=== PATIENT | female | born 1990 | race Caucasian/White ===

== ENCOUNTER 2018-04-20 05:11 | Day surgery (SDC) | payer OTHER ==
[2018-04-13 14:28] VITALS: BMI 23.4
[2018-04-20] MEDS ORDERED: IBUPROFEN 400 MG TABLET (FP) PO PRN (09:03)
[2018-04-20] MEDS ORDERED: ACETAMINOPHEN 325 MG TABLET (FP) PO PRN (09:03)
--- NOTE | 2018-04-20 09:03 | HP ---
History & Physical Update - History History: No Change - Physical Physical: No Change - Assessment Assessment: No Change - Plan Plan: No Change (No change in HP)
--- NOTE | 2018-04-20 10:21 | OP ---
Operative Note - Note: Operative Date: 04/20/18 Pre-Operative Diagnosis: Cervical Dysplasia. HPV Operation: LEEP cone Post-Operative Diagnosis: Same as Pre-op Surgeon: Lucero Estrada Anesthesia: General Estimated Blood Loss (mls): 1 Operative Report Dictated: Yes
[2018-04-20 11:05] VITALS: TEMP 98
[2018-04-20] MEDS ORDERED: ONDANSETRON 4 MG/2 ML VIAL IVPUSH PRN (11:16)
[2018-04-20] MEDS ORDERED: oxyCODONE HCL 5 MG TABLET PO PRN ×2 (11:16)
[2018-04-20] MEDS ORDERED: LACTATED RINGERS SOLUTION 1,000 ML IV SCH (11:30)
[2018-04-20 11:46] VITALS: BP 121/54; PULSE 95
--- NOTE | 2018-04-20 17:54 | OP ---
DATE OF OPERATION: 04/20/2018 PREOPERATIVE DIAGNOSIS: Cervical dysplasia, human papillomavirus. OPERATION: Cone loop electrocautery excision procedure. POSTOPERATIVE DIAGNOSIS: Cervical dysplasia, human papillomavirus. SURGEON: Lucero Estrada MD ANESTHESIA: General. ANESTHESIOLOGIST: Roge Powers MD ESTIMATED BLOOD LOSS: 1 mL. PROCEDURE: Patient was taken to the operating room, placed in dorsal lithotomy position, prepped and draped in the usual sterile fashion. A timeout was called in accordance with hospital regulation. A speculum was placed in vagina and cervix was then painted with Lugol's. A large LEEP cone was then performed. Ectocervix was submitted and then endocervix. Cauterization with the cervix was done for hemostasis. Monsel was then placed. Hemostasis was achieved. Speculum was removed. Patient had tolerated procedure well. Estimated blood loss, again, was 1 mL. LUCERO ESTRADA M.D. [id number]
--- NOTE | 2018-04-24 10:30 | PATH ---
Surgical Pathology Report Patient Name: IDANIA DE LEON [facility]. Rec. #: [id number] /Age/Gender: 1990 (Age: 28) / F Account: [id number] Location: [facility] Taken: 04/20/2018 Received: 04/20/2018 Reported: 04/24/2018 Physicians: Lucero Estrada M.D. Specimen(s) Received A: ENDOCERVICAL BIOPSY B: EXOCERVICAL BIOPSY Clinical History Abnormal Pap smear Final Diagnosis A. ENDOCERVIX, CONE BIOPSY: ENDOCERVICAL TISSUE WITH SQUAMOUS METAPLASIA. NEGATIVE FOR DYSPLASIA. B. ECTOCERVIX, CONE BIOPSY: CERVICAL TISSUE WITH RICH 2 (CERVICAL INTRAEPITHELIAL NEOPLASIA, GRADE 2). MARGINS ARE NEGATIVE FOR HIGH GRADE DYSPLASIA. LOW GRADE DYSPLASIA (RICH 1) PRESENT AT ECTOCERVICAL MARGIN AND IN SEPARATAE SQUAMOUS EPITHELIUM. Comment: Immunohistochemical stains P16 and Ki-67 (at block B4) performed at [facility] ([id number]) interpreted at [facility] confirm the diagnosis of high grade dysplasia. Positive and negative controls (internal if applicable) show appropriate results. Electronically Signed Ilene Ritter M.D. Gross Description A. Received in formalin labeled "endocervix," is a 1.8 x 1.1 x 0.4 cm unoriented portion of soft tissue, consistent with a cervical cone biopsy. The specimen is inked blue, sectioned and entirely and sequentially submitted in 4 cassettes. B. Received in formalin labeled "ectocervix," is a 1.7 x 1.2 x 0.5 cm unoriented portion of soft tissue, consistent with a cervical cone biopsy. The specimen is partially surfaced by a pérez-pink mucosa. The specimen is inked blue, sectioned and entirely and sequentially submitted in 4 cassettes. DL04/20/2018 saudi04/20/2018
== END 2018-04-20 11:45 | disposition home or self-care (01) ==
LOC: JASU-SURG 05:11
PROVIDERS: ATTEND Obstetrics & Gynecology
PROC: 0UBC7ZX Excision of Cervix, Via Natural or Artificial Opening, Diagnostic (ICD-10-PCS; principal; 2018-04-20 09:30)
DX: N87.1 Moderate cervical dysplasia (principal); R87.820 Cervical low risk human papillomavirus (HPV) DNA test positive
CPT/HCPCS: 36415; 84703; 86850; 86900; 86901; 88307-TC; 94760

== ENCOUNTER 2019-06-28 10:55 | Emergency (ER) | payer OTHER ==
[2019-06-28 11:02] VITALS: BP 132/81; PULSE 115; TEMP 100.3; BMI 25.4
--- NOTE | 2019-06-28 12:31 | PDOC ---
History of Present Illness - General Chief Complaint: Cold Symptoms Stated Complaint: COLD SYMPTOMS Time Seen by Provider: 06/28/19 11:49 History Source: Patient Exam Limitations: Clinical Condition - History of Present Illness Initial Comments: 06/28/19 12:27 Patient with no significant past medical history present with complaint of 3 weeks history of persistent cough, nasal congestion, body aches, runny nose, fever and chills. Patient reported seeing PCP a week ago and was told symptoms is likely from virus and was only given Motrin which has not been helping with her symptoms. Denies shortness of breath but reports sore throat. Denies weakness, dizziness, palpitations, nausea or vomiting. Denies any other symptoms. Patient's is sick at home with same symptoms. Denies recent travel. Is this a multiple visit Asthma Patient?: No Timing/Duration: other (3 weeks) Past History - Past Medical History Allergies/Adverse Reactions: Allergies Allergy/AdvReac Type Severity Reaction Status Date / Time No Known Allergies Allergy Verified 11/18/12 17:01 Home Medications: Ambulatory Orders Bcp 1 tab PO DAILY 03/05/18 metroNIDAZOLE 0.75% VAG. GEL [Metrogel 0.75% Vaginal Gel -] 1 applic VG HS 5 Days #1 tube 04/20/18 Azithromycin [Zithromax 250mg Tablets -] 250 mg PO UTDICT #6 tab 06/28/19 Benzonatate [Tessalon Pearls -] 100 mg PO Q8H PRN #21 capsule 06/28/19 Methylprednisolone [Medrol Dose Jonas] 4 mg PO ASDIR #21 tablet 06/28/19 Montelukast Na [Singulair -] 10 mg PO DAILY #7 tablet 06/28/19 Anemia: No Asthma: Yes Cancer: No Cardiac Disorders: No CVA: No COPD: No CHF: No Dementia: No Diabetes: No GI Disorders: No Disorders: No HTN: No Hypercholesterolemia: No Liver Disease: No Seizures: No Thyroid Disease: Yes - Immunization History Immunization Up to Date: No - Psycho Social/Smoking Cessation Hx Smoking Status: No Smoking History: Never smoked Have you smoked in the past 12 months: No Number of Cigarettes Smoked Daily: 0 Information on smoking cessation initiated: No Hx Alcohol Use: No Drug/Substance Use Hx: No Substance Use Type: None Hx Substance Use Treatment: No Review of Systems - Review of Systems Able to Perform ROS?: Yes Is the patient limited Kinyarwanda proficient: No Constitutional: Yes: Chills, Fever, Malaise HEENTM: Yes: Symptoms Reported, See HPI, Nose Congestion, Throat Pain. No: Eye Pain, Blurred Vision, Tearing, Recent change in vision, Double Vision, Cataracts , Ear Pain, Ocular Prothesis, Ear Discharge, Nose Pain, Tinnitus, Nose Bleeding , Hearing Loss, Throat Swelling, Mouth Pain, Dental Problems, Difficulty Swallowing, Mouth Swelling, Other Respiratory: Yes: Symptoms reported, See HPI, Cough. No: Orthopnea, Shortness of Breath, SOB with Exertion, SOB at Rest, Stridor, Wheezing, Productive cough, Hemoptysis, Other Cardiac (ROS): No: Symptoms Reported, See HPI, Chest Pain, Edema, Irregular Heart Rate, Lightheadedness, Palpitations, Syncope, Chest Tightness, Other ABD/GI: No: Symptoms Reported, See HPI, Nausea, Vomiting All Other Systems: Reviewed and Negative *Physical Exam - Vital Signs Last Vital Signs Temp Pulse Resp BP Pulse Ox 100.3 F H 115 H 20 132/81 99 06/28/19 11:00 06/28/19 11:00 06/28/19 11:00 06/28/19 11:06/28/19 11:00 - Physical Exam 06/28/19 12:30 GENERAL: Well developed, well nourished. Awake and alert. No acute distress. HEENT: Normocephalic, atraumatic. PERRLA, EOMI. No conjunctival pallor. Sclera are non-icteric. Moist mucous membranes. Oropharynx is clear. NECK: Supple. Full ROM. CARDIOVASCULAR: Regular rate and rhythm. No murmurs, rubs, or gallops. Distal pulses are 2+ and symmetric. PULMONARY: No evidence of respiratory distress. Lungs clear to auscultation bilaterally. No wheezing, rales or rhonchi. ABDOMINAL: Soft. Non-tender. Non-distended. No rebound or guarding. No organomegaly. Normoactive bowel sounds. MUSCULOSKELETAL Normal range of motion at all joints. SKIN: Warm and dry. Normal capillary refill. No rashes. No jaundice. No cyanosis NEUROLOGICAL: Alert, awake, appropriate. Gait is normal without ataxia. PSYCHIATRIC: Cooperative. Good eye contact. Appropriate mood General Appearance: Yes: Nourished, Appropriately Dressed. No: Apparent Distress Medical Decision Making - Medical Decision Making 06/28/19 12:29 Patient with no significant past medical history present with complaint of 3 weeks history of persistent cough, nasal congestion, body aches, runny nose, fever and chills. Patient reported seeing PCP a week ago and was told symptoms is likely from virus and was only given Motrin which has not been helping with her symptoms. Denies shortness of breath but reports sore throat. Denies weakness, dizziness, palpitations, nausea or vomiting. Denies any other symptoms. Patient's is sick at home with same symptoms. Denies recent travel. Exam significant for low-grade fever 100.3 F orally. Lungs clear to auscultation bilateral. Patient with complaint of malaise. Patient symptoms likely viral infection versus strep. Influenza test and rapid strep ordered to rule out strep and flu. Treat based on lab results 06/28/19 12:55 Rapid flu positive for influenza A which is likely the cause of patient's symptoms. However given patient's with similar symptoms showing possible pneumonia chest x-ray, and patient having symptoms for more than 3 weeks, will also put patient on Z-Jonas antibiotics and Tessalon Perles as needed for cough with PCP follow-up Discharge - Discharge Information Problems reviewed: Yes Clinical Impression/Diagnosis: Influenza A, URI, acute, Malaise and fatigue Fever Qualifiers: Fever type: unspecified Qualified Code(s): R50.9 - Fever, unspecified Condition: Stable Disposition: HOME - Admission No - Additional Discharge Information Prescriptions: Azithromycin [Zithromax 250mg Tablets -] 250 mg PO UTDICT #6 tab Benzonatate [Tessalon Pearls -] 100 mg PO Q8H PRN #21 capsule PRN Reason: Cough Methylprednisolone [Medrol Dose Jonas] 4 mg PO ASDIR #21 tablet Montelukast Na [Singulair -] 10 mg PO DAILY #7 tablet - Follow up/Referral Referrals: Sahil Holliday MD [Primary Care Provider] - - Patient Discharge Instructions Patient Printed Discharge Instructions: DI for Viral Upper Respiratory Infection -- Adult Additional Instructions: Your flu test is positive for influenza A. Take prescribed medication as prescribed. Increase fluid intake. Follow-up with primary care. Continue with Tylenol and Motrin as needed for fever - Post Discharge Activity
== END 2019-06-28 13:02 | disposition home or self-care (01) ==
LOC: JERFT 10:55
DX: J09.X2 Influenza due to identified novel influenza A virus with other respiratory manifestations (principal)
CPT/HCPCS: 87070; 87804; 87880; 99282-25

== ENCOUNTER 2020-07-08 16:49 | Emergency (ER) | payer OTHER ==
[2020-07-08 17:27] VITALS: BMI 28.1
[2020-07-08 18:39] LABS: BASO % 0.5 % (0-2.0); EOS % 2.3 % (0-4.5); HEMATOCRIT 42.4 % (32.4-45.2); HEMOGLOBIN 14.1 GM/dL (10.7-15.3); LYMPH % 40.7 % (8-40); MCH 27.8 pg (25.7-33.7); MCHC 33.3 g/dl (32.0-36.0); MEAN CELL VOLUME 83.4 fl (80-96); MEAN PLT VOLUME 7.7 fl (7.5-11.1); MONO % 7.9 % (3.8-10.2); NEUT % 48.6 % (42.8-82.8); PLATELET COUNT 240 K/MM3 (134-434); RBC 5.08 M/mm3 (3.60-5.2); RDW 12.7 % (11.6-15.6)
[2020-07-08 18:42] LABS: URINE APPEARANCE CLOUDY; URINE BILIRUBIN NEGATIVE (NEGATIVE); URINE COLOR YELLOW; URINE GLUCOSE (UA) NEGATIVE (NEGATIVE); URINE KETONE TRACE (NEGATIVE); URINE LEUK ESTERASE NEGATIVE (NEGATIVE); URINE NITRITE NEGATIVE (NEGATIVE); URINE PROTEIN NEGATIVE (NEGATIVE)
[2020-07-08 18:44] LABS: HCG,QUALITATIVE URINE Negative
[2020-07-08 19:04] LABS: CHLORIDE 104 mmol/L (98-107); POTASSIUM 4.2 mmol/L (3.5-5.1); SODIUM 138 mmol/L (136-145)
[2020-07-08 19:08] LABS: ALBUMIN 3.9 g/dl (3.4-5.0); ANION GAP 5 MMOL/L (8-16); BLOOD UREA NITROGEN 11.1 mg/dL (7-18); CALCIUM 9.1 mg/dL (8.5-10.1); CO2 28 mmol/L (21-32); GLUCOSE,RANDOM 104 mg/dL (74-106)
[2020-07-08 19:11] LABS: SGOT/AST 12 U/L (15-37); SGPT/ALT 25 U/L (13-61)
[2020-07-08 19:12] LABS: CREATININE 0.7 mg/dL (0.55-1.3)
[2020-07-08 19:13] LABS: BILIRUBIN,TOTAL 0.2 mg/dL (0.2-1); TOT PROT 8.1 g/dl (6.4-8.2)
[2020-07-08 19:14] LABS: ALK PHOS 137 U/L (45-117)
[2020-07-08 20:56] VITALS: BP 117/78; PULSE 89; TEMP 98.3
== END 2020-07-08 20:55 | disposition home or self-care (01) ==
LOC: JER 16:49
DX: R07.9 Chest pain, unspecified (principal)
CPT/HCPCS: 36415; 71046-TC-FY; 80053; 81003; 82550; 84443; 84484; 84703; 85025; 85379; 93005; 93010; 99285-25; C9803; U0003

== ENCOUNTER → 2021-01-30 | Day surgery (SDC) | payer OTHER ==
[2021-01-30 10:06] LABS: BLOOD UREA NITROGEN 10.5 mg/dL (7-18)
== END | disposition home or self-care (01) ==
LOC: JRADUS-SUR 08:39
PROVIDERS: ATTEND Physician Assistant Surgical
PROC: BU081ZZ Plain Radiography of Uterus and Fallopian Tubes using Low Osmolar Contrast (ICD-10-PCS; principal; 2021-01-30)
DX: Z31.41 Encounter for fertility testing (principal); N97.2 Female infertility of uterine origin
CPT/HCPCS: 36415; 58340; 74740-TC-FY; 76000-TC-FY; 82540; 84520; 84702; 84703

== ENCOUNTER 2021-04-12 10:42 | Emergency (ER) | payer OTHER ==
[2021-04-12 11:05] VITALS: BMI 26.4
[2021-04-12] MEDS ORDERED: FAMOTIDINE 20 MG/50 ML IVPB 20 MG/50 ML MG IVPB ONE ×2 (11:52→12:24)
[2021-04-12] MEDS ORDERED: SODIUM CHLORIDE 1,000 ML IV STA (11:52)
[2021-04-12] MEDS ORDERED: ACETAMINOPHEN 1000 MG/100 ML VIAL IVPB ONE (11:52)
[2021-04-12] MEDS ORDERED: ACETAMINOPHEN INJECTION 100 ML IVPB ONE (12:24)
[2021-04-12 12:57] LABS: EOS % 0.9 % (0-4.5); HEMATOCRIT 38.8 % (32.4-45.2); HEMOGLOBIN 13.3 GM/dL (10.7-15.3); LYMPH % 50.6 % (8-40); MCH 29.4 pg (25.7-33.7); MCHC 34.3 g/dl (32.0-36.0); MEAN CELL VOLUME 85.7 fl (80-96); MEAN PLT VOLUME 7.4 fl (7.5-11.1); MONO % 4.6 % (3.8-10.2); NEUT % 42.9 % (42.8-82.8); PLATELET COUNT 246 10^3/uL (134-434); RBC 4.53 M/mm3 (3.60-5.2); RDW 12.7 % (11.6-15.6); WHITE BLOOD COUNT 5.7 K/mm3 (4.0-10.0)
[2021-04-12 13:08] LABS: EPI CELLS >36 /uL (0-25.1); HYALINE CASTS 3 /uL (0-3.1); URINE APPEARANCE CLOUDY; URINE BACTERIA 629 /uL (0-1359); URINE BILIRUBIN NEGATIVE (NEGATIVE); URINE COLOR YELLOW; URINE GLUCOSE (UA) NEGATIVE (NEGATIVE); URINE KETONE NEGATIVE (NEGATIVE); URINE LEUK ESTERASE 1+ (NEGATIVE); URINE NITRITE NEGATIVE (NEGATIVE); URINE PROTEIN NEGATIVE (NEGATIVE); URINE RBC 4 /uL (0-23.9); URINE UROBILINOGEN 0.2 mg/dL (0.2-1.0); URINE WBC 29 /uL (0-25.8)
[2021-04-12 13:09] LABS: HCG,QUALITATIVE URINE Negative
[2021-04-12 13:20] LABS: CALCIUM 9.4 mg/dL (8.5-10.1)
[2021-04-12 13:24] LABS: CREATININE 0.8 mg/dL (0.55-1.3)
[2021-04-12 13:25] LABS: BILIRUBIN,TOTAL 0.3 mg/dL (0.2-1); TOT PROT 7.9 g/dl (6.4-8.2)
[2021-04-12 16:20] VITALS: BP 107/71; PULSE 78; TEMP 98
== END 2021-04-12 16:23 | disposition home or self-care (01) ==
LOC: JER 10:42
PROC: 3E033NZ Introduction of Analgesics, Hypnotics, Sedatives into Peripheral Vein, Percutaneous Approach (ICD-10-PCS; principal; 2021-04-12)
PROC: 3E033GC Introduction of Other Therapeutic Substance into Peripheral Vein, Percutaneous Approach (ICD-10-PCS; 2021-04-12)
PROC: 3E0337Z Introduction of Electrolytic and Water Balance Substance into Peripheral Vein, Percutaneous Approach (ICD-10-PCS; 2021-04-12)
DX: R10.2 Pelvic and perineal pain (principal); R10.13 Epigastric pain; N39.0 Urinary tract infection, site not specified; N83.202 Unspecified ovarian cyst, left side
CPT/HCPCS: 36415; 76705-TC; 76830-TC; 80053; 81003; 83690; 84703; 85025; 87077; 87086; 99284-25; J0131

== ENCOUNTER 2021-05-23 16:34 | Inpatient (IN) | payer OTHER ==
[2021-05-23] MEDS ORDERED: PIPERACILLIN/TAZOB 4.5 GM 4.5 GM in DEXTROSE 5%-WATER 100 ML IVPB ONE (20:13)
[2021-05-23] MEDS ORDERED: VANCOMYCIN 1 GM in D5W (PRE-DOCKED) 1,000 MG/250 ML IVPB ONE (20:13)
[2021-05-23] MEDS ORDERED: PIPERACILLIN/TAZOB 4.5 GM 4.5 GM/100 ML BAG IVPB ONE (20:22)
[2021-05-23] MEDS ORDERED: VANCOMYCIN 1 GRAM (PRE-DOCKED) 1,000 MG/250 ML BAG IVPB ONE (20:22)
[2021-05-23 21:04] LABS: BASO % 0.3 % (0-2.0); EOS % 0.8 % (0-4.5); HEMATOCRIT 39.4 % (32.4-45.2); HEMOGLOBIN 13.3 GM/dL (10.7-15.3); LYMPH % 29.5 % (8-40); MCHC 33.7 g/dl (32.0-36.0); MEAN PLT VOLUME 7.6 fl (7.5-11.1); MONO % 3.7 % (3.8-10.2); NEUT % 65.7 % (42.8-82.8); PLATELET COUNT 346 10^3/uL (134-434); RBC 4.58 M/mm3 (3.60-5.2); RDW 12.5 % (11.6-15.6)
[2021-05-23 21:14] LABS: ALBUMIN 3.8 g/dl (3.4-5.0); BLOOD UREA NITROGEN 10.8 mg/dL (7-18); CALCIUM 9.2 mg/dL (8.5-10.1)
[2021-05-23 21:18] LABS: CREATININE 0.8 mg/dL (0.55-1.3)
[2021-05-23 21:19] LABS: BILIRUBIN,TOTAL 0.2 mg/dL (0.2-1)
[2021-05-23 21:59] LABS: EPI CELLS >36 /uL (0-25.1); HCG,QUALITATIVE URINE Negative; HYALINE CASTS 6 /uL (0-3.1); URINE APPEARANCE CLOUDY; URINE BACTERIA 826 /uL (0-1359); URINE BILIRUBIN NEGATIVE (NEGATIVE); URINE COLOR YELLOW; URINE GLUCOSE (UA) NEGATIVE (NEGATIVE); URINE KETONE NEGATIVE (NEGATIVE); URINE LEUK ESTERASE 1+ (NEGATIVE); URINE NITRITE NEGATIVE (NEGATIVE); URINE PROTEIN NEGATIVE (NEGATIVE); URINE RBC 7 /uL (0-23.9); URINE UROBILINOGEN 0.2 mg/dL (0.2-1.0); URINE WBC 178 /uL (0-25.8)
[2021-05-24 07:55] LABS: CALCIUM 8.3 mg/dL (8.5-10.1)
[2021-05-24 07:56] LABS: ALBUMIN 3.2 g/dl (3.4-5.0); BLOOD UREA NITROGEN 10.7 mg/dL (7-18)
[2021-05-24 07:58] LABS: CREATININE 0.8 mg/dL (0.55-1.3); URIC ACID 3.6 mg/dL (2.6-7.2)
[2021-05-24 08:00] LABS: BILIRUBIN,TOTAL 0.4 mg/dL (0.2-1)
[2021-05-24 08:01] LABS: TOT PROT 6.8 g/dl (6.4-8.2)
[2021-05-24 08:23] LABS: BASO % 0.1 % (0-2.0); EOS % 0.5 % (0-4.5); HEMATOCRIT 36.1 % (32.4-45.2); HEMOGLOBIN 12.4 GM/dL (10.7-15.3); LYMPH % 19.4 % (8-40); MCH 29.5 pg (25.7-33.7); MCHC 34.3 g/dl (32.0-36.0); MEAN CELL VOLUME 86.2 fl (80-96); MEAN PLT VOLUME 7.3 fl (7.5-11.1); MONO % 3.1 % (3.8-10.2); NEUT % 76.9 % (42.8-82.8); PLATELET COUNT 308 10^3/uL (134-434); RBC 4.19 M/mm3 (3.60-5.2); RDW 12.4 % (11.6-15.6); WHITE BLOOD COUNT 10.6 K/mm3 (4.0-10.0)
[2021-05-24] MEDS: SODIUM CHLORIDE 1,000 ML IV SCH ×2 (09:23→14:33)
[2021-05-24] MEDS ORDERED: CLINDAMYCIN 600MG PREMIX IVPB 600 MG/50 ML BAG IVPB ONE (09:27)
[2021-05-24] MEDS ORDERED: ENOXAPARIN NA (PORCINE) 40 MG/0.4 ML DISP.SYRIN SQ ONE (09:27)
[2021-05-24] MEDS: ENOXAPARIN NA (PORCINE) 40 MG/0.4 ML DISP.SYRIN SQ SCH (09:33)
[2021-05-24] MEDS ORDERED: CLINDAMYCIN 600MG PREMIX IVPB 600 MG/50 ML BAG IVPB SCH (10:00)
[2021-05-24 13:08] VITALS: BMI 27.1
[2021-05-24 17:36] LABS: HIV INTERPRETATION NEGATIVE (NEGATIVE)
[2021-05-24] MEDS ORDERED: WATER IVPB SCH (18:00)
[2021-05-24] MEDS ORDERED: CLINDAMYCIN IVPB SCH (18:00)
[2021-05-24] MEDS ORDERED: DEXTROSE 5% IVPB SCH (18:00)
[2021-05-24] MEDS: CLINDAMYCIN 300 MG PREMIX IVPB 300 MG/50 ML BAG IVPB SCH (18:29)
[2021-05-25] MEDS ORDERED: diphenhydrAMINE HCL 25 MG CAPSULE (FP) PO ONE (00:27)
[2021-05-25] MEDS: CLINDAMYCIN 300 MG PREMIX IVPB 300 MG/50 ML BAG IVPB SCH ×2 (01:08→10:33)
[2021-05-25] MEDS ORDERED: PT OWN MED DRAWER 7, Y5N ONE ×2 (09:11→14:35)
[2021-05-25] MEDS: ENOXAPARIN NA (PORCINE) 40 MG/0.4 ML DISP.SYRIN SQ SCH (10:33)
[2021-05-25 10:36] LABS: BASO % 0.2 % (0-2.0); EOS % 0.9 % (0-4.5); HEMATOCRIT 36.3 % (32.4-45.2); HEMOGLOBIN 12.2 GM/dL (10.7-15.3); LYMPH % 28.3 % (8-40); MCH 29.2 pg (25.7-33.7); MCHC 33.6 g/dl (32.0-36.0); MEAN CELL VOLUME 87.1 fl (80-96); MEAN PLT VOLUME 7.5 fl (7.5-11.1); MONO % 3.5 % (3.8-10.2); NEUT % 67.1 % (42.8-82.8); PLATELET COUNT 311 10^3/uL (134-434); RBC 4.17 M/mm3 (3.60-5.2); RDW 12.4 % (11.6-15.6); WHITE BLOOD COUNT 5.6 K/mm3 (4.0-10.0)
[2021-05-25 10:56] LABS: CALCIUM 8.3 mg/dL (8.5-10.1)
[2021-05-25 10:57] LABS: BLOOD UREA NITROGEN 11.7 mg/dL (7-18)
[2021-05-25 10:58] LABS: MAGNESIUM 2.1 mg/dL (1.8-2.4)
[2021-05-25 11:00] LABS: PHOSPHOROUS 3.2 mg/dL (2.5-4.9)
[2021-05-25 11:01] LABS: CREATININE 0.9 mg/dL (0.55-1.3)
[2021-05-25 11:51] LABS: HIV INTERPRETATION NEGATIVE (NEGATIVE)
[2021-05-25 14:36] VITALS: BP 112/69; PULSE 87; TEMP 98.8
== END 2021-05-25 18:06 | disposition home or self-care (01) | DRG 385 ==
LOC: JER 16:34 → JERBED 05-24 02:12 → J8W 05-24 12:26
PROVIDERS: ADMIT Internal Medicine
DX: L24.3 Irritant contact dermatitis due to cosmetics (principal); E05.90 Thyrotoxicosis, unspecified without thyrotoxic crisis or storm; E03.9 Hypothyroidism, unspecified; J45.909 Unspecified asthma, uncomplicated; N85.4 Malposition of uterus; R82.71 Bacteriuria
CPT/HCPCS: 36415; 71046-TC-FY; 73701-TC-RT; 80048; 80053; 81003; 83690; 83735; 84100; 84439; 84443; 84550; 84703; 85025; 85651; 86140; 87040; 87086; 87389; 93005; 93010; 93970-TC; 99285-25; C9803; U0003; U0005

== ENCOUNTER 2021-12-02 23:07 | Emergency (ER) | payer OTHER ==
[2021-12-02 23:19] VITALS: BP 130/89; PULSE 73; TEMP 99.1; BMI 26.4
== END 2021-12-03 02:25 | disposition home or self-care (01) ==
LOC: JER 23:07
DX: J06.9 Acute upper respiratory infection, unspecified (principal)
CPT/HCPCS: 71046-TC-FY; 99283-25

== ENCOUNTER 2022-05-15 10:23 | Inpatient (IN) | payer OTHER ==
[2022-05-15] MEDS ORDERED: ACETAMINOPHEN 500 MG TABLET (FP) PO ONE (10:40)
[2022-05-15] MEDS ORDERED: ONDANSETRON 4 MG/2 ML VIAL IVPUSH ONE (12:20)
[2022-05-15] MEDS ORDERED: SODIUM CHLORIDE 1,000 ML IV STA (12:20)
[2022-05-15] MEDS ORDERED: ONDANSETRON 4 MG/2 ML VIAL ONE (12:42)
[2022-05-15 12:49] VITALS: RESP 18
[2022-05-15 13:07] LABS: HCG,QUALITATIVE URINE Negative
[2022-05-15 13:10] LABS: EPI CELLS >36 /uL (0-25.1); HYALINE CASTS 1 /uL (0-3.1); URINE APPEARANCE CLOUDY; URINE BACTERIA 96 /uL (0-1359); URINE BILIRUBIN NEGATIVE (NEGATIVE); URINE COLOR YELLOW; URINE GLUCOSE (UA) NEGATIVE (NEGATIVE); URINE KETONE NEGATIVE (NEGATIVE); URINE LEUK ESTERASE TRACE (NEGATIVE); URINE NITRITE NEGATIVE (NEGATIVE); URINE PROTEIN NEGATIVE (NEGATIVE); URINE RBC 13 /uL (0-23.9); URINE UROBILINOGEN 0.2 mg/dL (0.2-1.0); URINE WBC 51 /uL (0-25.8)
[2022-05-15 13:52] LABS: CALCIUM 8.1 mg/dL (8.5-10.1)
[2022-05-15 13:53] LABS: ALBUMIN 3.6 g/dl (3.4-5.0); BLOOD UREA NITROGEN 8.8 mg/dL (7-18)
[2022-05-15 13:57] LABS: BILIRUBIN,TOTAL 0.1 mg/dL (0.2-1)
[2022-05-15 13:58] LABS: TOT PROT 7.4 g/dl (6.4-8.2)
[2022-05-15 14:05] LABS: BASO % 0.3 % (0-2.0); EOS % 0.2 % (0-4.5); HEMATOCRIT 39.6 % (32.4-45.2); HEMOGLOBIN 13.1 GM/dL (10.7-15.3); LYMPH % 11.5 % (8-40); MCH 27.8 pg (25.7-33.7); MEAN CELL VOLUME 84.4 fl (80-96); MEAN PLT VOLUME 8.3 fl (7.5-11.1); MONO % 5.8 % (3.8-10.2); NEUT % 82.2 % (42.8-82.8); PLATELET COUNT 143 10^3/uL (134-434); RDW 12.9 % (11.6-15.6)
[2022-05-15 14:14] LABS: WHITE BLOOD COUNT 1.6 K/mm3 (4.0-10.0)
[2022-05-15 14:39] LABS: BASO % 0.9 % (0-2.0); EOS % 0.2 % (0-4.5); HEMATOCRIT 37.5 % (32.4-45.2); HEMOGLOBIN 12.3 GM/dL (10.7-15.3); LYMPH % 19.7 % (8-40); MCH 27.7 pg (25.7-33.7); MCHC 32.8 g/dl (32.0-36.0); MEAN CELL VOLUME 84.6 fl (80-96); MEAN PLT VOLUME 7.2 fl (7.5-11.1); MONO % 8.4 % (3.8-10.2); NEUT % 70.8 % (42.8-82.8); PLATELET COUNT 122 10^3/uL (134-434); RBC 4.44 M/mm3 (3.60-5.2); RDW 12.7 % (11.6-15.6); WHITE BLOOD COUNT 1.5 K/mm3 (4.0-10.0)
[2022-05-15] MEDS ORDERED: CEFTRIAXONE 1 GM in DEXTROSE 5%-WATER - 100 ML IVPB ONE (14:57)
[2022-05-15 15:21] LABS: ANISOCYTOSIS 0; HELMET CELLS 0; HOWELL-JOLLY BODIES 0; MACROCYTOSIS 0; OVALOCYTE 0; ROULEAU 0; SICKELED CELLS 0; TARGET CELLS 0; TEAR DROP CELLS 0; TOXIC GRANULATION 0
[2022-05-15] MEDS ORDERED: DOXYCYCLINE INJECTION 100 MG in DEXTROSE 5%-WATER 100 ML IVPB ONE (15:30)
[2022-05-15 16:07] LABS: BASO % 0.3 % (0-2.0); EOS % 0.2 % (0-4.5); HEMATOCRIT 39.3 % (32.4-45.2); HEMOGLOBIN 12.9 GM/dL (10.7-15.3); LYMPH % 26.1 % (8-40); MCH 27.6 pg (25.7-33.7); MCHC 32.7 g/dl (32.0-36.0); MEAN CELL VOLUME 84.2 fl (80-96); MEAN PLT VOLUME 7.9 fl (7.5-11.1); MONO % 10.1 % (3.8-10.2); NEUT % 63.3 % (42.8-82.8); PLATELET COUNT 137 10^3/uL (134-434); RBC 4.66 M/mm3 (3.60-5.2); RDW 12.7 % (11.6-15.6)
[2022-05-15 16:08] LABS: WHITE BLOOD COUNT 1.4 K/mm3 (4.0-10.0)
[2022-05-15] MEDS ORDERED: CEFTRIAXONE 1 GM/50 ML BAG ONE (16:08)
[2022-05-15 16:22] LABS: ANISOCYTOSIS 1+; MACROCYTOSIS 1+
[2022-05-15] MEDS ORDERED: DOXYCYCLINE HYCLATE 100 MG VIAL ONE (16:34)
[2022-05-15 17:21] LABS: ANISOCYTOSIS 1+; MACROCYTOSIS 0
[2022-05-15] MEDS ORDERED: METHOCARBAMOL 500 MG TABLET PO ONE (17:43)
[2022-05-15] MEDS ORDERED: KETOROLAC TROMETHAMINE 15 MG/ML VIAL IVPUSH ONE (17:43)
[2022-05-15] MEDS ORDERED: PIPERACILLIN/TAZOB 3.375 GM 3.375 GM/50 ML BAG IVPB ONE (17:55)
[2022-05-15] MEDS ORDERED: KETOROLAC TROMETHAMINE 15 MG/ML VIAL ONE (18:02)
[2022-05-15] MEDS ORDERED: METHOCARBAMOL 500 MG TABLET ONE (18:02)
[2022-05-15] MEDS: PIPERACILLIN/TAZOB 3.375 GM 3.375 GM in DEXTROSE 5%-WATER - 50 ML IVPB SCH (18:14)
[2022-05-16] MEDS ORDERED: DOXYCYCLINE HYCLATE 100 MG VIAL ONE (02:06)
[2022-05-16 07:40] LABS: HEMATOCRIT 37.6 % (32.4-45.2); HEMOGLOBIN 12.5 GM/dL (10.7-15.3); MCH 27.9 pg (25.7-33.7); MCHC 33.2 g/dl (32.0-36.0); MEAN PLT VOLUME 7.9 fl (7.5-11.1); PLATELET COUNT 128 10^3/uL (134-434); RBC 4.48 M/mm3 (3.60-5.2); RDW 12.8 % (11.6-15.6)
[2022-05-16 07:46] LABS: WHITE BLOOD COUNT 1.7 K/mm3 (4.0-10.0)
[2022-05-16 07:59] LABS: CALCIUM 7.4 mg/dL (8.5-10.1)
[2022-05-16 08:00] LABS: ALBUMIN 3.1 g/dl (3.4-5.0); BLOOD UREA NITROGEN 10.2 mg/dL (7-18); MAGNESIUM 2.1 mg/dL (1.8-2.4)
[2022-05-16 08:03] LABS: CREATININE 0.8 mg/dL (0.55-1.3); PHOSPHOROUS 2.8 mg/dL (2.5-4.9)
[2022-05-16 08:04] LABS: BILIRUBIN,TOTAL 0.3 mg/dL (0.2-1); TOT PROT 6.5 g/dl (6.4-8.2)
[2022-05-16] MEDS: DOXYCYCLINE INJECTION 100 MG in DEXTROSE 5%-WATER 100 ML IVPB SCH ×3 (08:12→22:15)
[2022-05-16] MEDS: PIPERACILLIN/TAZOB 3.375 GM 3.375 GM in DEXTROSE 5%-WATER - 50 ML IVPB SCH ×3 (08:12→17:52)
[2022-05-16 09:11] LABS: ANISOCYTOSIS 0; HELMET CELLS 0; HOWELL-JOLLY BODIES 0; MACROCYTOSIS 0; OVALOCYTE 0; ROULEAU 0; SICKELED CELLS 0; TARGET CELLS 0; TEAR DROP CELLS 0; TOXIC GRANULATION 0
[2022-05-16] MEDS ORDERED: FLU VACC QS2022-23(6MOS UP)/PF 60 MCG/0.5 ML SYRINGE IM ONE (09:27)
[2022-05-16] MEDS ORDERED: METHIMAZOLE 10 MG TABLET PO SCH (10:00)
[2022-05-16] MEDS ORDERED: ACETAMINOPHEN 1000 MG/100 ML BAG IVPB PRN (15:42)
[2022-05-16] MEDS ORDERED: ONDANSETRON 4 MG TABLET PO ONE (16:23)
[2022-05-17] MEDS: PIPERACILLIN/TAZOB 3.375 GM 3.375 GM in DEXTROSE 5%-WATER - 50 ML IVPB SCH (03:12)
[2022-05-17] MEDS ORDERED: ONDANSETRON 4 MG/2 ML VIAL IVPUSH ONE (08:58)
[2022-05-17] MEDS: DOXYCYCLINE INJECTION 100 MG in DEXTROSE 5%-WATER 100 ML IVPB SCH ×2 (09:47→21:56)
[2022-05-17] MEDS ORDERED: TBO-FILGRASTIM 300 MCG/0.5 ML DISP.SYRINGE SQ ONE (11:00)
[2022-05-17 14:08] LABS: HEMATOCRIT 40.4 % (32.4-45.2); HEMOGLOBIN 13.2 GM/dL (10.7-15.3); MCH 27.3 pg (25.7-33.7); MCHC 32.6 g/dl (32.0-36.0); MEAN CELL VOLUME 83.9 fl (80-96); MEAN PLT VOLUME 8.5 fl (7.5-11.1); PLATELET COUNT 155 10^3/uL (134-434); RBC 4.81 M/mm3 (3.60-5.2); RDW 12.6 % (11.6-15.6); WHITE BLOOD COUNT 2.1 K/mm3 (4.0-10.0)
[2022-05-17 14:29] LABS: BLOOD UREA NITROGEN 13.8 mg/dL (7-18)
[2022-05-17 14:32] LABS: CREATININE 0.9 mg/dL (0.55-1.3)
[2022-05-17 14:42] LABS: CALCIUM 8.8 mg/dL (8.5-10.1)
[2022-05-17 15:24] LABS: HIV INTERPRETATION NEGATIVE (NEGATIVE)
[2022-05-17 16:21] VITALS: BMI 26.0
[2022-05-17] MEDS ORDERED: methylPREDNISolone 4 MG TABLET PO SCH (16:30)
[2022-05-17] MEDS ORDERED: ACETAMINOPHEN 325 MG TABLET (FP) PO PRN (17:24)
[2022-05-17] MEDS ORDERED: methylPREDNISolone 4 MG TABLET PO ONE (17:30)
[2022-05-17] MEDS: PANTOPRAZOLE 40 MG TABLET PO SCH (18:06)
[2022-05-17] MEDS ORDERED: morphine CARPU-JECT 2 MG/1 ML DISP.SYRIN IVPUSH ONE (23:06)
[2022-05-17] MEDS ORDERED: KETOROLAC TROMETHAMINE 10 MG TABLET PO ONE (23:30)
[2022-05-18] MEDS ORDERED: ASPIRIN 325 MG TABLET PO ONE (06:00)
[2022-05-18 07:51] LABS: HEMATOCRIT 39.6 % (32.4-45.2); HEMOGLOBIN 13.2 GM/dL (10.7-15.3); MCHC 33.2 g/dl (32.0-36.0); MEAN CELL VOLUME 84.2 fl (80-96); MEAN PLT VOLUME 8.1 fl (7.5-11.1); PLATELET COUNT 147 10^3/uL (134-434); RDW 12.9 % (11.6-15.6)
[2022-05-18 08:04] LABS: WHITE BLOOD COUNT 18.9 K/mm3 (4.0-10.0)
[2022-05-18 08:10] LABS: BLOOD UREA NITROGEN 12.8 mg/dL (7-18); CALCIUM 8.3 mg/dL (8.5-10.1)
[2022-05-18 08:11] LABS: ALBUMIN 3.4 g/dl (3.4-5.0)
[2022-05-18 08:14] LABS: CREATININE 0.8 mg/dL (0.55-1.3)
[2022-05-18 08:15] LABS: BILIRUBIN,TOTAL 0.3 mg/dL (0.2-1)
[2022-05-18] MEDS ORDERED: TBO-FILGRASTIM 300 MCG/0.5 ML DISP.SYRINGE SQ SCH (10:00)
[2022-05-18] MEDS ORDERED: methylPREDNISolone 4 MG TABLET PO ONE (10:00)
[2022-05-18] MEDS: DOXYCYCLINE INJECTION 100 MG in DEXTROSE 5%-WATER 100 ML IVPB SCH ×2 (10:53→21:45)
[2022-05-18] MEDS: PANTOPRAZOLE 40 MG TABLET PO SCH (10:53)
[2022-05-19 07:59] LABS: BASO % 0.1 % (0-2.0); EOS % 0.2 % (0-4.5); HEMATOCRIT 38.7 % (32.4-45.2); LYMPH % 14.4 % (8-40); MCHC 33.5 g/dl (32.0-36.0); MEAN CELL VOLUME 83.5 fl (80-96); MEAN PLT VOLUME 8.1 fl (7.5-11.1); MONO % 3.8 % (3.8-10.2); NEUT % 81.5 % (42.8-82.8); PLATELET COUNT 164 10^3/uL (134-434); RBC 4.63 M/mm3 (3.60-5.2); RDW 12.8 % (11.6-15.6); WHITE BLOOD COUNT 12.5 K/mm3 (4.0-10.0)
[2022-05-19 08:05] LABS: CALCIUM 8.3 mg/dL (8.5-10.1)
[2022-05-19 08:06] LABS: BLOOD UREA NITROGEN 14.8 mg/dL (7-18)
[2022-05-19 08:09] LABS: CREATININE 0.7 mg/dL (0.55-1.3)
[2022-05-19] MEDS ORDERED: methylPREDNISolone 4 MG TABLET PO ONE (10:00)
[2022-05-19] MEDS: PANTOPRAZOLE 40 MG TABLET PO SCH (10:10)
[2022-05-19] MEDS: DOXYCYCLINE INJECTION 100 MG in DEXTROSE 5%-WATER 100 ML IVPB SCH (10:10)
[2022-05-19 14:05] VITALS: BP 121/75; PULSE 79; TEMP 98.9
[2022-05-20] MEDS ORDERED: methylPREDNISolone 4 MG TABLET PO ONE (10:00)
[2022-05-20 15:07] LABS: E.chaff HME IgG Negative (Neg:<1:64)
[2022-05-21] MEDS ORDERED: methylPREDNISolone 4 MG TABLET PO ONE (10:00)
[2022-05-22] MEDS ORDERED: methylPREDNISolone 4 MG TABLET PO ONE (10:00)
== END 2022-05-19 16:30 | disposition home or self-care (01) | DRG 660 ==
LOC: JER 10:23 → JERBED 19:43 → J7W 05-16 10:24
PROVIDERS: ADMIT Internal Medicine; ATTEND Internal Medicine
DX: D70.9 Neutropenia, unspecified (principal); M54.50 Low back pain, unspecified; D69.6 Thrombocytopenia, unspecified; E05.90 Thyrotoxicosis, unspecified without thyrotoxic crisis or storm; A04.8 Other specified bacterial intestinal infections; R50.9 Fever, unspecified; R19.7 Diarrhea, unspecified; R50.81 Fever presenting with conditions classified elsewhere; K29.00 Acute gastritis without bleeding; B96.81 Helicobacter pylori [H. pylori] as the cause of diseases classified elsewhere; I82.612 Acute embolism and thrombosis of superficial veins of left upper extremity
CPT/HCPCS: 0241U-QW; 36415; 71046-TC-FY; 74176-TC; 80048; 80053; 81003; 82272; 82930; 83735; 84100; 84443; 84703; 85025; 85027; 86038; 86618; 86666; 86704; 86803; 87040; 87086; 87186; 87207; 87340; 87389; 87798; 93005; 93010; 93971; 99285-25; J1447

== ENCOUNTER 2022-12-10 08:49 | Emergency (ER) | payer OTHER ==
[2022-12-10 08:58] VITALS: BP 130/91; PULSE 77; RESP 20; TEMP 99; BMI 27.3
[2022-12-10] MEDS ORDERED: ACETAMINOPHEN 325 MG TABLET (FP) PO ONE (10:11)
[2022-12-10] MEDS ORDERED: KETOROLAC TROMETHAMINE 30 MG/1 ML VIAL IM ONE (10:15)
[2022-12-10] MEDS ORDERED: ACETAMINOPHEN 325 MG TABLET (FP) ONE (10:20)
[2022-12-10] MEDS ORDERED: KETOROLAC TROMETHAMINE 30 MG/1 ML VIAL ONE (10:20)
== END 2022-12-10 10:43 | disposition home or self-care (01) ==
LOC: JER 08:49 → JERFT 08:49
PROC: 3E0233Z Introduction of Anti-inflammatory into Muscle, Percutaneous Approach (ICD-10-PCS; principal; 2022-12-10)
DX: N64.4 Mastodynia (principal); R68.83 Chills (without fever)
CPT/HCPCS: 99284-25

== ENCOUNTER 2023-03-21 23:46 | Emergency (ER) | payer OTHER ==
[2023-03-21 23:50] VITALS: BP 120/80; PULSE 98; RESP 18; TEMP 98.1; BMI 27.3
[2023-03-22] MEDS ORDERED: ONDANSETRON *ODT* 4 MG TABLET SL ONE (00:24)
[2023-03-22] MEDS ORDERED: ONDANSETRON *ODT* 4 MG TABLET ONE (00:29)
[2023-03-22] MEDS ORDERED: LACTATED RINGERS SOLUTION 1000 ML INFUS.BAG IV ONE (00:31)
[2023-03-22] MEDS ORDERED: ACETAMINOPHEN 1000 MG/100 ML BAG IVPB ONE (00:31)
[2023-03-22] MEDS ORDERED: FAMOTIDINE 20 MG/50 ML IVPB 20 MG/50 ML MG IVPB ONE ×2 (00:31→00:38)
[2023-03-22] MEDS ORDERED: METOCLOPRAMIDE HCL INJECTION 10 MG/2 ML VIAL IVPUSH ONE (00:31)
[2023-03-22] MEDS ORDERED: FAMOTIDINE 10 MG/ML VIAL IVPB ONE (00:38)
[2023-03-22] MEDS ORDERED: METOCLOPRAMIDE HCL INJECTION 10 MG/2 ML VIAL ONE (00:41)
[2023-03-22] MEDS ORDERED: ACETAMINOPHEN INJECTION 100 ML IVPB ONE (00:43)
[2023-03-22] MEDS ORDERED: MAG HYDROX/AL HYDROX/SIMETH -MYLANTA- ORAL SUSPENSION PO ONE (00:46)
[2023-03-22] MEDS ORDERED: MAG HYDROX/AL HYDROX/SIMETH 30 ML UNIT-DOSE CUP ONE (00:47)
[2023-03-22 01:00] LABS: BASO % 0.2 % (0-2.0); EOS % 0.4 % (0-4.5); HEMATOCRIT 40.3 % (32.4-45.2); HEMOGLOBIN 14.3 GM/dL (10.7-15.3); LYMPH % 13.3 % (8-40); MCH 30.5 pg (25.7-33.7); MCHC 35.6 g/dl (32.0-36.0); MEAN CELL VOLUME 85.7 fl (80-96); MEAN PLT VOLUME 7.3 fl (7.5-11.1); MONO % 6.3 % (3.8-10.2); NEUT % 79.8 % (42.8-82.8); PLATELET COUNT 236 10^3/uL (134-434); RDW 12.5 % (11.6-15.6); WHITE BLOOD COUNT 7.2 K/mm3 (4.0-10.0)
[2023-03-22 01:19] LABS: POTASSIUM 3.5 mmol/L (3.5-5.1)
[2023-03-22 01:20] LABS: CALCIUM 8.6 mg/dL (8.5-10.1)
[2023-03-22 01:21] LABS: ALBUMIN 3.6 g/dl (3.4-5.0); BLOOD UREA NITROGEN 5.7 mg/dL (7-18)
[2023-03-22 01:24] LABS: CREATININE 0.7 mg/dL (0.55-1.3)
[2023-03-22 01:25] LABS: BILIRUBIN,TOTAL 0.3 mg/dL (0.2-1)
[2023-03-22 01:26] LABS: TOT PROT 7.5 g/dl (6.4-8.2)
[2023-03-22 03:41] LABS: EPI CELLS 16 /uL (0-25.1); HYALINE CASTS 0 /uL (0-3.1); URINE APPEARANCE CLEAR; URINE BACTERIA 1096 /uL (0-1359); URINE BILIRUBIN NEGATIVE (NEGATIVE); URINE COLOR YELLOW; URINE GLUCOSE (UA) NEGATIVE (NEGATIVE); URINE KETONE NEGATIVE (NEGATIVE); URINE LEUK ESTERASE 2+ (NEGATIVE); URINE NITRITE NEGATIVE (NEGATIVE); URINE PROTEIN NEGATIVE (NEGATIVE); URINE RBC 10 /uL (0-23.9); URINE UROBILINOGEN 0.2 mg/dL (0.2-1.0); URINE WBC 189 /uL (0-25.8)
[2023-03-22] MEDS ORDERED: CEPHALEXIN MONOHYDRATE 500 MG CAPSULE (UD) PO ONE (03:43)
[2023-03-22] MEDS ORDERED: CEPHALEXIN MONOHYDRATE 500 MG CAPSULE (UD) ONE (04:05)
== END 2023-03-22 05:03 | disposition home or self-care (01) ==
LOC: JER 23:46
PROC: 3E033GC Introduction of Other Therapeutic Substance into Peripheral Vein, Percutaneous Approach (ICD-10-PCS; principal; 2023-03-22)
PROC: 3E033NZ Introduction of Analgesics, Hypnotics, Sedatives into Peripheral Vein, Percutaneous Approach (ICD-10-PCS; 2023-03-22)
PROC: 3E033GC Introduction of Other Therapeutic Substance into Peripheral Vein, Percutaneous Approach (ICD-10-PCS; 2023-03-22)
DX: O21.9 Vomiting of pregnancy, unspecified (principal); O26.891 Other specified pregnancy related conditions, first trimester; R10.11 Right upper quadrant pain; R10.13 Epigastric pain; O23.41 Unspecified infection of urinary tract in pregnancy, first trimester; Z3A.08 8 weeks gestation of pregnancy
CPT/HCPCS: 36415; 76705-TC; 76815; 80053; 81003; 83690; 84702; 85025; 86850; 86900; 86901; 87086; 99284-25; Q0162